=== PATIENT | female | born 1995 | race Two or more races ===

== ENCOUNTER 2018-07-19 00:52 | Emergency (ER) | payer OTHER ==
[~2018-07-19] VITALS: Ht 160 cm; Wt 54.0 kg
[2018-07-19] MEDS ORDERED: CIPRO500 MG PO (06:24)
[2018-07-19] MEDS ORDERED: KETO10TA2 PO (06:24)
== END 2018-07-19 06:39 | disposition home or self-care (01) ==
LOC: ER 00:52
DX: N39.0 Urinary tract infection, site not specified (principal); B95.7 Other staphylococcus as the cause of diseases classified elsewhere